=== PATIENT | female | born 1975 ===

== ENCOUNTER 2017-10-11 02:19 | Outpatient (CLI) | payer BC | END 2017-10-11 23:59 | disposition home or self-care (01) | LOC: DIABETIC 02:19 | PROVIDERS: ATTEND Family Medicine | DX: Z13.1 Encounter for screening for diabetes mellitus (principal) ==

== ENCOUNTER 2017-12-15 01:27 | Outpatient (CLI) | payer BC | END 2017-12-15 23:59 | disposition home or self-care (01) | LOC: DIABETIC 01:27 | PROVIDERS: ATTEND Surgery | DX: E11.9 Type 2 diabetes mellitus without complications (principal) | CPT/HCPCS: 97802 ==

== ENCOUNTER 2018-01-20 04:37 | Outpatient (CLI) | payer BC | END 2018-01-20 23:59 | disposition home or self-care (01) | LOC: DIABETIC 04:37 | PROVIDERS: ATTEND Surgery | DX: E66.01 Morbid (severe) obesity due to excess calories (principal); G47.30 Sleep apnea, unspecified | CPT/HCPCS: 97802 ==

== ENCOUNTER 2018-02-28 02:45 | Outpatient (CLI) | payer BC | END 2018-02-28 23:59 | disposition home or self-care (01) | LOC: DIABETIC 02:45 | PROVIDERS: ATTEND Surgery | DX: Z01.818 Encounter for other preprocedural examination (principal); E66.01 Morbid (severe) obesity due to excess calories; G47.30 Sleep apnea, unspecified | CPT/HCPCS: 97802 ==

== ENCOUNTER 2018-03-13 04:38 | Outpatient (CLI) | payer BC | END 2018-03-13 23:59 | disposition home or self-care (01) | LOC: DIABETIC 04:38 | PROVIDERS: ATTEND Surgery | DX: E66.01 Morbid (severe) obesity due to excess calories (principal); G47.30 Sleep apnea, unspecified | CPT/HCPCS: 97802 ==